=== PATIENT | female | born 1935 | race Caucasian/White ===

== ENCOUNTER → 2016-11-04 | Outpatient (CLI) | payer MEDICARE, BC ==
[2016-11-04 11:07] LABS: CH 31.8; CHCM 33.1; HCT 45.5 % (34.0-46.0); HDW 2.85; HGB 14.9 gm/dL (11.4-16.0); MCH 31.5 pg (25.0-35.0); MCHC 32.6 g/dL (31.0-37.0); MCV 96.7 fL (80.0-100.0); RBC 4.71 m/uL (3.80-5.40); RDW 12.6 % (11.5-15.5); WBC 7.7 k/uL (3.8-10.6)
[2016-11-04 11:30] LABS: Anion Gap 10 mmol/L; Blood Urea Nitrogen 19 mg/dL (7-17); Carbon Dioxide 30 mmol/L (22-30); Chloride 106 mmol/L (98-107); Non-African American GFR(MDRD) 53 (>60 ml/min/1.73 sqM); Potassium 4.1 mmol/L (3.5-5.1); Sodium 146 mmol/L (137-145)
== END | disposition home or self-care (01) ==
LOC: LABPAT 10:32
PROVIDERS: ATTEND Internal Medicine Interventional Cardiology
DX: Z01.812 Encounter for preprocedural laboratory examination (principal); R07.9 Chest pain, unspecified; R06.02 Shortness of breath
CPT/HCPCS: 80051; 82565; 84520; 85027

== ENCOUNTER 2016-11-11 06:55 | Day surgery (SDC) | payer MEDICARE, BC ==
[2016-11-07 09:41] VITALS: BMI 29.3
[2016-11-11] MEDS ORDERED: ALPRAZolam 0.25 MG TAB PO PRN (07:08)
[2016-11-11] MEDS ORDERED: SODIUM CHLORIDE 0.9% 1,000 ML in EMPTY BAG 1 BAG IV ONE (07:08)
[2016-11-11] MEDS ORDERED: ALPRAZolam 0.5 MG TAB PO PRN (07:08)
[2016-11-11] MEDS ORDERED: ATORVASTATIN 80 MG TAB PO STA (07:08)
[2016-11-11] MEDS ORDERED: NITROGLYCERIN SL TABS 0.4 MG TAB SUBLINGUAL PRN (07:08)
[2016-11-11] MEDS ORDERED: diphenhydrAMINE 50 MG/ML 1 ML VIAL IVP ONE (11:09)
[2016-11-11] MEDS ORDERED: MIDAZOLAM 2 MG/2 ML VIAL IVP ONE (11:09)
[2016-11-11] MEDS ORDERED: LIDOCAINE 2% INJ 20 MG/ML SQ ONE (11:09)
[2016-11-11] MEDS: VERAPAMIL SYRINGE (5 MG/10 ML) INTRAARTER ONE ×2 (11:12→11:24)
[2016-11-11] MEDS ORDERED: HEPARIN SODIUM 1,000 UNIT/ML VIAL IV ONE (11:14)
[2016-11-11] MEDS ORDERED: IODIXANOL 320 MG/ML 100 ML INTRAARTER ONE (11:26)
[2016-11-11] MEDS ORDERED: RX INFO: IV CONTRAST WAS GIVEN 1 EACH MISC MISCELLANE PRN (11:32)
[2016-11-11] MEDS ORDERED: SODIUM CHLORIDE 0.9% 1,000 ML IV SCH (11:45)
[2016-11-11 12:23] VITALS: TEMP 97.8
--- NOTE | 2016-11-11 12:41 | CC ---
DATE OF SERVICE: 11/11/2016 PERFORMING PHYSICIAN: Austin Davis M.D., Music Video Director. PROCEDURE PERFORMED: 1. Selective right and left coronary angiogram. 2. Left heart catheterization. INDICATION: This is a pleasant 81-year-old female patient who was seen in the office recently, who was experiencing shortness of breath. She underwent a myocardial perfusion imaging stress test which showed anterior ischemia. The heart catheterization is to rule out any severe underlying CAD. APPROACH: Right radial artery. COMPLICATIONS: None. LEVEL OF SEDATION: Moderate. PROCEDURE DESCRIPTION: After obtaining an informed consent, the patient was brought to the Cardiac Inbound Call [facility] Representative. The right radial artery was cannulated using micropuncture technique. The micropuncture wire passed easily, then I placed 6 [place] sheath in the right radial artery. Subsequently, the patient was given 2 mg of verapamil IA and 3000 units of heparin IV. Then I did selective right and left coronary angiogram using JR4 and JL 3.5 catheters. I did left heart catheterization using the JR4 catheter, which slipped into the left ventricle, then I did pullback. The procedure was completed without any complication. SELECTIVE CORONARY ANGIOGRAM: 1. The right coronary artery is a large-caliber vessel and it is a dominant vessel. The right coronary artery is angiographically normal. It bifurcates distally into PDA and PLV branches; both are angiographically normal. 2. The left main is angiographically normal. It bifurcates into the left circumflex, ramus intermedius, and left anterior descending artery. 3. The left circumflex is a large-caliber vessel and it is a codominant vessel. The proximal left circumflex is angiographically normal and gives rise into the first OM branch, which seems to be angiographically normally. The mid left circumflex is normal as well. The left circumflex distally is normal and bifurcates into PDA and PLV branches, both are angiographically normal. 4. The ramus intermedius is angiographically normal. 5. The proximal left anterior descending artery is angiographically normal. The mid LAD has what seems to be short segment of myocardial bridging. The LAD distally is normal. CONCLUSION: 1. Codominant right and left coronary system. 2. 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 3. There is no evidence of any coronary artery disease. Postprocedure management will be: 1. Medical treatment. 2. Follow up with the patient.
--- NOTE | 2016-11-11 12:50 | LTR ---
November 11, 2016 RE: Molly Hannah Dear Luke; Ms. Molly Hannah underwent a heart catheterization which showed no evidence of coronary artery disease but mild myocardial bridging involving the mid LAD. I want to thank you for allowing me to participate in her care and please do not hesitate to call if you have any questions or concerns. Sincerely, DENISE GALICIA MD
[2016-11-11 13:59] VITALS: BP 156/71; PULSE 52; RESP 16
== END 2016-11-11 18:13 | disposition home or self-care (01) ==
LOC: CATHCVL 06:55 → 3OBS 11:24 → CATHCVL 18:13
PROVIDERS: ATTEND Internal Medicine Interventional Cardiology
DX: R94.39 Abnormal result of other cardiovascular function study (principal); R06.02 Shortness of breath; I44.7 Left bundle-branch block, unspecified; I10 Essential (primary) hypertension; Z82.49 Family history of ischemic heart disease and other diseases of the circulatory system; Z79.899 Other long term (current) drug therapy; Z88.5 Allergy status to narcotic agent; Z88.8 Allergy status to other drugs, medicaments and biological substances; Z87.891 Personal history of nicotine dependence
CPT/HCPCS: 93458; C1894; J2001; J2250; J1200; Q9967; J1644